=== PATIENT | male | born 1975 | race Caucasian/White ===

== ENCOUNTER 2016-08-03 03:52 | Emergency (ER) | payer MEDICAID ==
[2016-08-03 04:01] VITALS: BP 152/93; PULSE 95; TEMP 98.4; BMI 32.8
--- NOTE | 2016-08-03 04:10 | EDPRACDOC ---
- General Information Chief Complaint: Rib Pain Stated Complaint: FEVER/ LT FLANK PAIN Time Seen by Provider: 08/03/16 04:03 Information Source: Patient Mode of Arrival: Car Home Medications: Home Medications Cyclobenzaprine HCl [Flexeril] 10 mg PO TID #21 tab 12/22/13 Ketorolac Tromethamine [Toradol] 10 mg PO Q6H PRN #12 tab 12/22/13 Risperidone [Risperdal] 1 mg PO HS 12/22/13 Ketorolac Tromethamine [Toradol] 10 mg PO Q6H PRN #12 tab 07/01/14 Oxycodone Immediate Release [Oxycodone Immediate Release (OxyIR)] 5 mg PO Q6H PRN #20 tab 07/01/14 Promethazine [Phenergan] 25 mg PO Q6-8H PRN #20 tab 07/01/14 Tamsulosin HCl [Flomax] 0.4 mg PO DAILY #10 cap 07/01/14 Cyclobenzaprine HCl [Flexeril] 5 mg PO Q8H PRN #20 tablet 08/03/16 Ibuprofen Tablet [Motrin] 600 mg PO Q6H #30 tab 08/03/16 Allergies/Adverse Reactions: Allergies Allergy/AdvReac Type Severity Reaction Status Date / Time No Known Allergies Allergy Verified 08/03/16 04:00 - History of Present Illness Onset: 2 DAYS AGO HPI: PT PRESENTS WITH LEFT LOWER RIB PAIN AFTER SNEEZING EARLIER TODAY. HE IS CURRENTLY BEING TREATED FOR AN UPPER RESPIRATORY INFECTION WITH AZITHROMYCIN. Pain Quality: Reports: Aching Pain Severity: Reports: Moderate Pain Worsens With: Reports: Breathing, Movement Associated Signs and Symptoms: Denies: Abrasion, Laceration, Hemoptysis, Abdominal Pain ED Past Medical History - History Reviewed Yes Nurses notes reviewed and agree except as marked No Past Medical History: Yes Patient has no past medical history - Patient Medical History Psychological History: Denies: Depression - Social Medical History Smoking Status: Never smoker Lives In: Home EDM Review of Systems - Review of Systems ROS Negative Except as Marked: Yes All systems reviewed and were negative except as marked Nose: Congestion, Discharge Musculoskeletal: Chestwall (LEFT LOWER LATERAL) - Physical Exam Constitutional: Alert Oriented to: Time, Person, Place Last recorded Vital Signs: Last Vital Signs Temp 98.4 F 08/03/16 03:57 Pulse 95 08/03/16 03:57 Resp 20 08/03/16 03:57 BP 152/93 08/03/16 03:57 Pulse Ox 97 08/03/16 03:57 Oxygen Pulse Oxygen Saturation 97 O2 Device Room Air Oxygen Flow Rate Fraction of Inspired Oxygen ( FIO2) - HEENT Head: negative: Deformity, Laceration Eye Exam: negative: Conjunctival Injection, Pale Conjunctiva Oropharynx: negative: Membranes Dry Nose: negative: Congestion, Discharge Neck: negative: Limited ROM - Respiratory/Cardiovascular Respiratory: Normal - CTA. negative: Accessory Muscle Use, Diminished, Tachypnea Cardiovascular: negative: Bradycardia, Tachycardia, Irregular - Integumentary Skin: Warm, Dry. negative: Rash - Neurologic Memory Impaired: Normal Motor Function: Normal Mood Description: Anxious, Appropriate Thought: Coherent Perception: Normal ED Chest Wall Pain Exam - Chest Wall Pain Chest: Tender (LEFT LOWER LATERAL). negative: Swelling, Ecchymosis, Deformity Decision Time to Discharge: 04:48 - Departure Yes I personally saw and evaluated the patient. Disposition: Home Condition: Stable Final Diagnosis: Chest wall muscle strain Qualifiers: Encounter type: initial encounter Qualified Code(s): S29.011A - Strain of muscle and tendon of front wall of thorax, initial encounter Instructions: Chest Wall Pain Education/Counseling Given To: Patient Education/Counseling Given Regarding: Diagnosis, Treatment, Prognosis, Follow Up Referrals: None,No Provider [Primary Care Provider] - As Needed Prescriptions: Cyclobenzaprine HCl [Flexeril] 5 mg PO Q8H PRN #20 tablet PRN Reason: Muscle Spasms Ibuprofen Tablet [Motrin] 600 mg PO Q6H #30 tab
--- NOTE | 2016-08-03 04:45 | DIRPT ---
CLINICAL DATA: 41-year-old male with left rib pain after sneezing EXAM: LEFT RIBS AND CHEST - 3+ VIEW COMPARISON: Radiograph dated 09/19/2014 FINDINGS: No fracture or other bone lesions are seen involving the ribs. There is no evidence of pneumothorax or pleural effusion. Both lungs are clear. Heart size and mediastinal contours are within normal limits. IMPRESSION: Negative. Electronically Signed By: Kushal Blair M.D. On: 08/03/2016 04:42
== END 2016-08-03 05:00 | disposition home or self-care (01) ==
LOC: ED 03:52
DX: S29.011A Strain of muscle and tendon of front wall of thorax, initial encounter (principal); X58.XXXA Exposure to other specified factors, initial encounter; Y93.9 Activity, unspecified
CPT/HCPCS: 99282